=== PATIENT | male | born 1960 | race Caucasian/White ===

== ENCOUNTER 2018-05-23 12:46 | Emergency (ER) | payer MEDICAID ==
[~2018-05-23] VITALS: Ht 180.3 cm; Wt 93.0 kg
[2018-05-23 12:46] VITALS: BP_SYST 145
[2018-05-23 15:40] VITALS: BP_SYST 145
== END 2018-05-23 15:40 | disposition home or self-care (01) ==
LOC: SED 12:46
DX: M16.11 Unilateral primary osteoarthritis, right hip (principal); F17.210 Nicotine dependence, cigarettes, uncomplicated
CPT/HCPCS: 73502; 99284